=== PATIENT | male | born 1960 | race Caucasian/White ===

== ENCOUNTER → 2021-06-25 | Outpatient (CLI) | payer OTHER ==
[~2021-06-25] MED LIST: /HYDR10T PO; ACIDTAB4 PO; ADVA250A INH; AMLO10TA2 PO; AMLO5TAB2 PO; ASPI325T PO; ASPI325T10 PO; ASPI81TA21 PO; ASPI81TA4 PO; ATOR1TAB21 PO; AVEL1TAB2 PO; BACL10TA2 PO; BENA25TA4 PO; CALC600T7 PO; CARA1SUS PO; CARV12.5 PO; CARV25TA PO; CHOL4PKT PO; CLOP75TA2 PO; DOC-8.6T PO; DOCU100C PO; DOCU5LIQ PO; EC-881TA PO; FERR140T PO; FERR324T12 PO; FLEX5TAB3 PO; FLOV100A3 INH; GABA100C PO; GLYC3350 PO; HCTZ PO; HYDR50IN3 PO; HYDR7.5T38 PO; HYDROCHLOROTHIAZIDE PO; IMDU120T PO; ISOSPOW PO; LIPI20TA PO; LISI5TAB PO; LISINOPRIL PO; LISINOPRIL/HCTZ PO; MULTCAP11 PO; NAPR375T2 PO; NICO14DI5 TD; NITR0.4D6 SL; NITR0.4D6 TD; NUCY100T6 PO; OMEP40CA2 PO; PERM5CRE TOP; PRED10TA2 PO; RANE1000 PO; SENN15TA2 PO; SENN1TAB2 PO; SENN8.6T21 PO; SIMV40TA2 PO; TAPE200T PO; TAPE50TA3 PO; TYLE325T5 PO; ULTR50TA PO; VANC5INJ5 PO; VENTAER IN; VENTAER INH; VOLT1GEL2 TOP; Ventolin; Ventolin HFA INH; Voltaren Gel TD; [UNRECOGNIZED DRUG - CODE] INH; [UNRECOGNIZED DRUG - CODE] PO; [UNRECOGNIZED DRUG - CODE] PO; lansoprazole PO; plavix PO
== END ==
LOC: M LABSMTC 10:01
PROVIDERS: ATTEND Internal Medicine Cardiovascular Disease
DX: Z01.812 Encounter for preprocedural laboratory examination (principal)

== ENCOUNTER → 2021-07-27 | Outpatient (CLI) | payer OTHER | LOC: M PLAIMG 10:34 | PROVIDERS: ATTEND Family Medicine Addiction Medicine | DX: M79.605 Pain in left leg (principal) ==

== ENCOUNTER → 2021-08-08 | Outpatient (CLI) | payer OTHER ==
[~2021-08-08] MED LIST changes: +ACET-683 PO; +ALBU8.5H INH; +ASPI-226 PO; +ATOR40TA75 PO; +ISOS1TAB35 PO; +METO1TAB32 PO; +NITR0.4S14 PO
== END ==
LOC: M LABSMTC 09:07
PROVIDERS: ATTEND Anesthesiology
DX: Z01.812 Encounter for preprocedural laboratory examination (principal); Z11.52 Encounter for screening for COVID-19

== ENCOUNTER 2021-08-09 11:58 | Day surgery (SDC) | payer MEDICARE, OTHER ==
[~2021-08-09] VITALS: Ht 175.3 cm; Wt 64.4 kg
[~2021-08-09 11:58] MED LIST changes: +NS 1,000 ML IV ONE
[2021-08-09] MEDS ORDERED: propofoL 200 MG/20 ML VIAL As Ordered ONE ×3 (14:02→14:26)
[2021-08-09 15:00] VITALS: BP 142/73
[2021-08-10 09:20] LABS: CLOSTRIDIUM DIFFICILE PCR NEGATIVE (NEGATIVE)
== END 2021-08-09 18:40 | disposition home or self-care (01) ==
LOC: M OPP 11:58
PROVIDERS: ATTEND Internal Medicine Gastroenterology
DX: Z12.11 Encounter for screening for malignant neoplasm of colon (principal); Z86.010 Personal history of colon polyps; K57.30 Diverticulosis of large intestine without perforation or abscess without bleeding; K64.8 Other hemorrhoids; Z79.1 Long term (current) use of non-steroidal anti-inflammatories (NSAID); Z79.51 Long term (current) use of inhaled steroids; Z79.82 Long term (current) use of aspirin; Z79.02 Long term (current) use of antithrombotics/antiplatelets; Z79.899 Other long term (current) drug therapy; Z88.1 Allergy status to other antibiotic agents; Z88.5 Allergy status to narcotic agent; Z87.891 Personal history of nicotine dependence

== ENCOUNTER 2021-08-25 12:24 | Emergency (ER) | payer MEDICARE ==
[~2021-08-25] VITALS: Ht 175.3 cm; Wt 64.6 kg
[~2021-08-25 12:24] MED LIST changes: -NS 1,000 ML IV ONE
[2021-08-25] MEDS ORDERED: ACETAMINOPHEN 500 MG TAB PO ONE (13:05)
[2021-08-25 14:16] VITALS: BP 155/81
== END 2021-08-25 14:18 | disposition home or self-care (01) ==
LOC: M ED 12:24
DX: M25.572 Pain in left ankle and joints of left foot (principal); I10 Essential (primary) hypertension; J44.9 Chronic obstructive pulmonary disease, unspecified; J45.909 Unspecified asthma, uncomplicated; N28.9 Disorder of kidney and ureter, unspecified; E78.00 Pure hypercholesterolemia, unspecified; G47.33 Obstructive sleep apnea (adult) (pediatric); H40.9 Unspecified glaucoma; M81.0 Age-related osteoporosis without current pathological fracture; Z86.73 Personal history of transient ischemic attack (TIA), and cerebral infarction without residual deficits; Z88.1 Allergy status to other antibiotic agents; Z88.8 Allergy status to other drugs, medicaments and biological substances; Z79.899 Other long term (current) drug therapy; Z79.82 Long term (current) use of aspirin; Z79.01 Long term (current) use of anticoagulants

== ENCOUNTER → 2021-09-10 | Outpatient (REF) | payer MEDICARE | LOC: M LAB REF 14:23 | PROVIDERS: ATTEND Internal Medicine Gastroenterology | DX: R19.7 Diarrhea, unspecified (principal) ==

== ENCOUNTER 2021-10-26 09:55 | Outpatient (RCR) | payer OTHER | END 2021-10-31 | LOC: M PT 09:55 | PROVIDERS: ATTEND Orthopaedic Surgery Hand Surgery | DX: M79.672 Pain in left foot (principal) ==

== ENCOUNTER → 2021-11-02 | Outpatient (REF) | payer OTHER | LOC: M SFHCDERM 16:59 | PROVIDERS: ATTEND Nurse Practitioner Family | DX: L82.0 Inflamed seborrheic keratosis (principal); B36.8 Other specified superficial mycoses ==

== ENCOUNTER 2021-11-22 09:39 | Outpatient (RCR) | payer OTHER | END 2021-11-30 | LOC: M PT 09:39 | PROVIDERS: ATTEND Orthopaedic Surgery Hand Surgery | DX: M79.672 Pain in left foot (principal) ==

== ENCOUNTER → 2022-02-01 | Outpatient (REF) | payer OTHER ==
[2022-02-01 18:22] LABS: BASO # 0.1 10^3/uL (0.0-0.2); BASO % 0.5 % (0.0-1.0); EOS # 0.1 10^3/uL (0.0-0.5); EOS % 1.4 % (0.0-3.0); HEMATOCRIT 50.5 % (42.0-52.0); HEMOGLOBIN 16.3 g/dl (13.5-17.5); LYMPH # 2.4 10^3/uL (1.5-5.0); LYMPH % 23.2 % (24.0-44.0); MEAN CORPUSCULAR HEMOGLOBIN 29.6 pg (27.0-33.0); MEAN CORPUSCULAR HGB CONC 32.3 g/dl (32.0-36.5); MEAN CORPUSCULAR VOLUME 91.8 fl (80.0-96.0); MONO # 0.7 10^3/uL (0.0-0.8); MONO % 6.7 % (2.0-8.0); NEUTROPHILS % 67.9 % (36.0-66.0); PLATELET COUNT, AUTOMATED 238 10^3/uL (150-450); WHITE BLOOD COUNT 10.2 10^3/uL (4.0-10.0)
[2022-02-01 19:18] LABS: ALBUMIN 3.8 G/DL (3.2-5.2); ALKALINE PHOSPHATASE 90 U/L (46-116); ALT/SGPT 24 U/L (7.0-40); AST/SGOT 17 U/L (<34); BILIRUBIN,TOTAL 0.6 MG/DL (0.3-1.2); BLOOD UREA NITROGEN 16 MG/DL (9-23); CALCIUM LEVEL 9.4 MG/DL (8.3-10.6); CARBON DIOXIDE LEVEL 26 MMOL/L (20-31); CHLORIDE LEVEL 105 MMOL/L (98-107); CREATININE FOR GFR 0.76 MG/DL (0.70-1.30); GLOMERULAR FILTRATION RATE > 60.0 (>49); GLUCOSE, FASTING 84 MG/DL (74-106); POTASSIUM SERUM 5.2 MMOL/L (3.5-5.1); SODIUM LEVEL 139 MMOL/L (136-145); THYROID STIMULATING HORMONE 1.006 uIU/ML (0.55-4.78)
[2022-02-01 20:39] LABS: FREE T4 1.32 NG/DL (0.89-1.76)
== END ==
LOC: M LAB REF 16:54
PROVIDERS: ATTEND Family Medicine Addiction Medicine
DX: R42 Dizziness and giddiness (principal)

== ENCOUNTER 2022-02-11 17:27 | Emergency (ER) | payer OTHER ==
[~2022-02-11] VITALS: Ht 175.3 cm; Wt 63.6 kg
[2022-02-11 17:27] VITALS: BP 155/72
[2022-02-11] MEDS ORDERED: INCR1INH INH (17:53)
== END 2022-02-11 22:55 | disposition left against medical advice (07) ==
LOC: M ED 17:27
DX: Z53.21 Procedure and treatment not carried out due to patient leaving prior to being seen by health care provider (principal)

== ENCOUNTER → 2022-02-15 | Outpatient (CLI) | payer OTHER ==
[~2022-02-15] MED LIST changes: +INCR1INH INH
== END ==
LOC: M RAD 12:31
PROVIDERS: ATTEND Family Medicine Addiction Medicine
DX: J44.9 Chronic obstructive pulmonary disease, unspecified (principal)

== ENCOUNTER → 2022-03-22 | Outpatient (CLI) | payer OTHER | LOC: M RAD 17:35 | PROVIDERS: ATTEND Physician Assistant | DX: J44.9 Chronic obstructive pulmonary disease, unspecified (principal) ==

== ENCOUNTER → 2022-04-22 | Outpatient (CLI) | payer OTHER | LOC: M PLARAD 09:05 | PROVIDERS: ATTEND Internal Medicine Pulmonary Disease | DX: R91.8 Other nonspecific abnormal finding of lung field (principal) | CPT/HCPCS: 78815; A9552 ==

== ENCOUNTER → 2022-05-08 | Outpatient (REF) | payer OTHER ==
[2022-05-08 13:03] LABS: BLOOD UREA NITROGEN 15 MG/DL (9-23); CALCIUM LEVEL 9.2 MG/DL (8.3-10.6); CARBON DIOXIDE LEVEL 28 MMOL/L (20-31); CHLORIDE LEVEL 105 MMOL/L (98-107); CREATININE FOR GFR 0.86 MG/DL (0.70-1.30); GLOMERULAR FILTRATION RATE > 60.0 (>49); GLUCOSE, FASTING 110 MG/DL (74-106); POTASSIUM SERUM 4.7 MMOL/L (3.5-5.1); SODIUM LEVEL 139 MMOL/L (136-145)
== END ==
LOC: M LAB REF 12:02
PROVIDERS: ATTEND Family Medicine Addiction Medicine
DX: I10 Essential (primary) hypertension (principal)

== ENCOUNTER → 2022-05-09 | Outpatient (CLI) | payer OTHER | LOC: M PLARAD 13:05 | PROVIDERS: ATTEND Family Medicine Addiction Medicine | DX: R51.9 Headache, unspecified (principal) ==

== ENCOUNTER → 2022-07-06 | Outpatient (CLI) | payer OTHER | LOC: M SLEEP 20:00 | PROVIDERS: ATTEND Physician Assistant | DX: G47.33 Obstructive sleep apnea (adult) (pediatric) (principal) ==

== ENCOUNTER 2022-07-12 11:39 | Emergency (ER) | payer OTHER ==
[~2022-07-12] VITALS: Ht 175.3 cm; Wt 67.0 kg
[~2022-07-12 11:39] MED LIST changes: +BREO1INH3 INH; +CREO3600 PO; +FLUT15.820; +LORA-674 PO
[2022-07-12 13:32] VITALS: BP 152/89
== END 2022-07-12 13:33 | disposition home or self-care (01) ==
LOC: M ED 11:39
DX: S20.219A Contusion of unspecified front wall of thorax, initial encounter (principal); X58.XXXA Exposure to other specified factors, initial encounter; Y92.89 Other specified places as the place of occurrence of the external cause; Y93.89 Activity, other specified; Y99.8 Other external cause status; I25.10 Atherosclerotic heart disease of native coronary artery without angina pectoris; J44.9 Chronic obstructive pulmonary disease, unspecified; Z87.891 Personal history of nicotine dependence; F12.90 Cannabis use, unspecified, uncomplicated; Z79.899 Other long term (current) drug therapy; Z88.8 Allergy status to other drugs, medicaments and biological substances; Z88.1 Allergy status to other antibiotic agents; Z79.82 Long term (current) use of aspirin; Z79.51 Long term (current) use of inhaled steroids

== ENCOUNTER 2022-07-17 07:32 | Day surgery (SDC) | payer OTHER ==
[~2022-07-17] VITALS: Ht 175.3 cm; Wt 66.3 kg
[~2022-07-17 07:32] MED LIST changes: +BSS IRRIG/VANCO(10MG)/TOBRA(5MG)/EPINEPH(1:1000-0.5CC)500ML BAG-ORONLY IR ONE; +CEFUROXIME 1MG/0.1ML INTRACAMERAL INJ As Ordered ONE; +CYCLOPENTOLATE 1% OPHTH SOLN 2ML BTL OS SCH; +LIDOCAINE 1% SDV 5ML VIAL As Ordered ONE; +LIDOCAINE 3.5 % 1ML OPHTH TOPICAL GEL OU ONE; +PHENYLEPHRINE 10% OPHTH SOL 5ML OS PRN; +PHENYLEPHRINE 2.5% OPHTH SOL 2ML OS SCH; +TROPICAMIDE 1% OPHTH SOLN 15ML OS SCH
[2022-07-17] MEDS ORDERED: MIDAZOLAM INJ 2MG/2ML VIAL As Ordered ONE (09:55)
[2022-07-17] MEDS ORDERED: fentaNYL 100 MCG/2 ML INJECTION As Ordered ONE (09:55)
[2022-07-17 10:09] VITALS: BP 134/73; TEMP 97.8; O2SAT 96
[2022-07-17] MEDS ORDERED: OFLOXACIN 0.3 % (OCUFLOX) OPTH SOL 5ML OS ONE (10:45)
== END 2022-07-17 10:25 | disposition home or self-care (01) ==
LOC: M SDC 07:32
PROVIDERS: ATTEND Ophthalmology
DX: H25.12 Age-related nuclear cataract, left eye (principal); I25.10 Atherosclerotic heart disease of native coronary artery without angina pectoris; I25.2 Old myocardial infarction; I10 Essential (primary) hypertension; R00.0 Tachycardia, unspecified; E78.00 Pure hypercholesterolemia, unspecified; Z95.0 Presence of cardiac pacemaker; Z86.19 Personal history of other infectious and parasitic diseases; R07.9 Chest pain, unspecified; J44.9 Chronic obstructive pulmonary disease, unspecified; G47.30 Sleep apnea, unspecified; J45.909 Unspecified asthma, uncomplicated; Z95.1 Presence of aortocoronary bypass graft; Z87.891 Personal history of nicotine dependence; M47.812 Spondylosis without myelopathy or radiculopathy, cervical region; Z88.8 Allergy status to other drugs, medicaments and biological substances; Z88.1 Allergy status to other antibiotic agents; Z79.899 Other long term (current) drug therapy; Z79.82 Long term (current) use of aspirin; Z79.51 Long term (current) use of inhaled steroids; Z79.02 Long term (current) use of antithrombotics/antiplatelets
CPT/HCPCS: 66984; J0697; J2250; J3010; V2632

== ENCOUNTER → 2022-07-23 | Outpatient (CLI) | payer OTHER ==
[~2022-07-23] MED LIST changes: -BSS IRRIG/VANCO(10MG)/TOBRA(5MG)/EPINEPH(1:1000-0.5CC)500ML BAG-ORONLY IR ONE; -CEFUROXIME 1MG/0.1ML INTRACAMERAL INJ As Ordered ONE; -CYCLOPENTOLATE 1% OPHTH SOLN 2ML BTL OS SCH; -LIDOCAINE 1% SDV 5ML VIAL As Ordered ONE; -LIDOCAINE 3.5 % 1ML OPHTH TOPICAL GEL OU ONE; -PHENYLEPHRINE 10% OPHTH SOL 5ML OS PRN; -PHENYLEPHRINE 2.5% OPHTH SOL 2ML OS SCH; -TROPICAMIDE 1% OPHTH SOLN 15ML OS SCH
== END ==
LOC: M WHC 10:44
PROVIDERS: ATTEND Pediatrics
DX: M85.80 Other specified disorders of bone density and structure, unspecified site (principal)

== ENCOUNTER → 2022-08-29 | Outpatient (CLI) | payer OTHER | LOC: M RAD 15:05 | PROVIDERS: ATTEND Physician Assistant | DX: J44.9 Chronic obstructive pulmonary disease, unspecified (principal); R91.8 Other nonspecific abnormal finding of lung field ==

== ENCOUNTER 2022-09-08 16:02 | Observation (INO) | payer OTHER ==
[~2022-09-08] VITALS: Ht 175.3 cm; Wt 65.1 kg
[~2022-09-08 16:02] MED LIST changes: -FLUT15.820; +FLUT15.820 NARES
[2022-09-08] MEDS ORDERED: METO1TAB7 PO (16:17)
[2022-09-08 16:45] LABS: BASO # 0.1 10^3/uL (0.0-0.2); BASO % 0.5 % (0.0-1.0); EOS # 0.3 10^3/uL (0.0-0.5); EOS % 1.9 % (0.0-3.0); HEMOGLOBIN 15.3 g/dl (13.5-17.5); LYMPH % 14.9 % (24.0-44.0); MEAN CORPUSCULAR HEMOGLOBIN 30.4 pg (27.0-33.0); MEAN CORPUSCULAR VOLUME 89.3 fl (80.0-96.0); MONO # 0.8 10^3/uL (0.0-0.8); MONO % 5.8 % (2.0-8.0); NEUTROPHILS # 10.1 10^3/uL (1.5-8.5); NEUTROPHILS % 76.4 % (36.0-66.0); PLATELET COUNT, AUTOMATED 204 10^3/uL (150-450); RED BLOOD COUNT 5.04 10^6/uL (4.30-6.10); WHITE BLOOD COUNT 13.2 10^3/uL (4.0-10.0)
[2022-09-08 17:23] LABS: CK-MB VALUE MASS < 1.0 NG/ML (<3.6)
[2022-09-08 17:26] LABS: ALBUMIN 3.5 G/DL (3.2-5.2); ALKALINE PHOSPHATASE 65 U/L (46-116); ALT/SGPT < 9 U/L (7.0-40); AST/SGOT 21 U/L (<34); BILIRUBIN,DIRECT 0.1 MG/DL (<0.4); BILIRUBIN,TOTAL 0.4 MG/DL (0.3-1.2); BLOOD UREA NITROGEN 19 MG/DL (9-23); CALCIUM LEVEL 8.6 MG/DL (8.3-10.6); CARBON DIOXIDE LEVEL 25 MMOL/L (20-31); CHLORIDE LEVEL 107 MMOL/L (98-107); CREATININE FOR GFR 0.78 MG/DL (0.70-1.30); GLOMERULAR FILTRATION RATE > 60.0 (>49); GLUCOSE, FASTING 89 MG/DL (74-106); POTASSIUM SERUM 4.2 MMOL/L (3.5-5.1); SODIUM LEVEL 138 MMOL/L (136-145); TOTAL PROTEIN 6.1 G/DL (5.7-8.2)
[2022-09-08] MEDS ORDERED: ISOVUE-370 76% 100ML VIAL As Ordered ONE (17:32)
[2022-09-08 17:34] LABS: CPK CREATINE PHOSPHOKINASE 70 U/L (46-171); MB/CK RELATIVE INDEX 1.42 (< OR =4)
[2022-09-08 17:42] LABS: INR 1.02; PROTHROMBIN TIME 13.6 SECONDS (12.5-14.5)
[2022-09-08 17:43] LABS: PARTIAL THROMBOPLASTIN TIME 27.6 SECONDS (24.8-34.2)
[2022-09-08 18:02] LABS: RSV AMPLIFICATION NEGATIVE (NEGATIVE)
[2022-09-08] MEDS ORDERED: INCR1INH INH (18:59)
[2022-09-08] MEDS ORDERED: LIDO1PAD TOP (18:59)
[2022-09-08] MEDS ORDERED: NICO21DI9 TOP (18:59)
[2022-09-08] MEDS ORDERED: HOME MED LIST COMPLETE! XX SCH (19:05)
[2022-09-08] MEDS ORDERED: CLOPIDOGREL 75 MG TAB PO STA (19:13)
[2022-09-08] MEDS ORDERED: LIDOCAINE 5% (LIDODERM) PATCH TOP PRN (19:15)
[2022-09-08] MEDS ORDERED: NITROGLYCERIN 0.4MG SUBL TABLET SL PRN (19:15)
[2022-09-08] MEDS ORDERED: ALBUTEROL 90 MCG/ACT 8GM HFA INHALER INH PRN (19:15)
[2022-09-08] MEDS ORDERED: ACETAMINOPHEN TAB 650MG DOSE (2X325MG) PO PRN (19:15)
[2022-09-08 19:38] LABS: HEMOGLOBIN A1c 5.5 % (4.0-6.0)
[2022-09-08] MEDS: ADVAIR HFA 115/21MCG INHALER INH SCH (20:00)
[2022-09-08] MEDS ORDERED: CREO3600 PO ×2 (20:15)
[2022-09-08 21:11] LABS: CHOLESTEROL LEVEL 126 MG/DL (<200); CHOLESTEROL RISK RATIO 3.76 (<5); HDL CHOLESTEROL 33.5 MG/DL (>40); LDL CHOLESTEROL 54.7 MG/DL (<100); NON-HDL-C 92.5 MG/DL; TRIGLYCERIDES LEVEL 189 MG/DL (<150)
[2022-09-09 00:30] VITALS: BP 144/81; TEMP 98.1; O2SAT 95
[2022-09-09 06:00] VITALS: BP 147/80; TEMP 98.1; O2SAT 93
[2022-09-09 06:29] LABS: HEMATOCRIT 47.6 % (42.0-52.0); HEMOGLOBIN 16.1 g/dl (13.5-17.5); MEAN CORPUSCULAR HEMOGLOBIN 30.7 pg (27.0-33.0); MEAN CORPUSCULAR HGB CONC 33.8 g/dl (32.0-36.5); MEAN CORPUSCULAR VOLUME 90.7 fl (80.0-96.0); PLATELET COUNT, AUTOMATED 195 10^3/uL (150-450); RED BLOOD COUNT 5.25 10^6/uL (4.30-6.10); WHITE BLOOD COUNT 11.9 10^3/uL (4.0-10.0)
[2022-09-09 06:57] LABS: BLOOD UREA NITROGEN 16 MG/DL (9-23); CALCIUM LEVEL 8.4 MG/DL (8.3-10.6); CARBON DIOXIDE LEVEL 24 MMOL/L (20-31); CHLORIDE LEVEL 109 MMOL/L (98-107); GLOMERULAR FILTRATION RATE > 60.0 (>49); GLUCOSE, FASTING 78 MG/DL (74-106); MAGNESIUM LEVEL 2.3 MG/DL (1.8-2.4); POTASSIUM SERUM 4.1 MMOL/L (3.5-5.1); SODIUM LEVEL 140 MMOL/L (136-145)
[2022-09-09] MEDS: TIOTROPIUM INHALER/CAPSULE (SPIRIVA) INH SCH (07:52)
[2022-09-09] MEDS: ADVAIR HFA 115/21MCG INHALER INH SCH ×2 (07:53→20:58)
[2022-09-09] MEDS ORDERED: CREON-12 CAPSULE PO PRN (08:00)
[2022-09-09] MEDS ORDERED: ATORVASTATIN 20 MG TAB PO SCH (09:00)
[2022-09-09] MEDS: ASPIRIN 81MG ENTERIC TABLET PO SCH (09:38)
[2022-09-09] MEDS: CREON-12 CAPSULE PO SCH ×3 (09:38→17:27)
[2022-09-09] MEDS: LORATADINE 10 MG TAB PO SCH (09:38)
[2022-09-09] MEDS: PANTOPRAZOLE 20 MG TAB PO SCH (09:38)
[2022-09-09] MEDS: CLOPIDOGREL 75 MG TAB PO SCH (09:38)
[2022-09-09] MEDS: METOPROLOL SUCC (TopROL XL) 50MG **XL** TAB PO SCH (09:39)
[2022-09-09 09:47] VITALS: BP_SYST 132; BP_SYST 133; BP_SYST 143; BP_DIAS 76; BP_DIAS 81; BP_DIAS 83
[2022-09-09] MEDS: ENOXAPARIN 40MG/0.4ML SYRINGE (J1650 PER 10MG) SC SCH (13:05)
[2022-09-09 14:00] VITALS: BP 115/68; TEMP 97.9; O2SAT 96
[2022-09-09 14:19] VITALS: BP_SYST 114; BP_SYST 115; BP_SYST 117; BP_DIAS 67; BP_DIAS 68
[2022-09-09 22:00] VITALS: BP_SYST 125; BP_SYST 132; BP_SYST 135; BP_SYST 136; BP_DIAS 72; BP_DIAS 78; BP_DIAS 79; TEMP 97.9; O2SAT 92
[2022-09-10 06:00] VITALS: BP 152/79; TEMP 97.7; O2SAT 97
[2022-09-10] MEDS: ADVAIR HFA 115/21MCG INHALER INH SCH ×2 (07:41→19:34)
[2022-09-10] MEDS: TIOTROPIUM INHALER/CAPSULE (SPIRIVA) INH SCH (07:41)
[2022-09-10] MEDS: CREON-12 CAPSULE PO SCH ×3 (08:18→16:55)
[2022-09-10] MEDS: LORATADINE 10 MG TAB PO SCH (08:18)
[2022-09-10] MEDS: CLOPIDOGREL 75 MG TAB PO SCH (08:18)
[2022-09-10] MEDS: ASPIRIN 81MG ENTERIC TABLET PO SCH (08:19)
[2022-09-10] MEDS: ATORVASTATIN 20 MG TAB PO SCH (08:19)
[2022-09-10] MEDS: METOPROLOL SUCC (TopROL XL) 50MG **XL** TAB PO SCH (08:19)
[2022-09-10] MEDS: ENOXAPARIN 40MG/0.4ML SYRINGE (J1650 PER 10MG) SC SCH (08:20)
[2022-09-10] MEDS: PANTOPRAZOLE 20 MG TAB PO SCH (08:24)
[2022-09-10 09:53] VITALS: BP 138/74; TEMP 97.7; O2SAT 95
[2022-09-10 09:54] VITALS: BP 152/87
[2022-09-10 12:22] LABS: BASO # 0.1 10^3/uL (0.0-0.2); BASO % 0.5 % (0.0-1.0); EOS # 0.4 10^3/uL (0.0-0.5); HEMATOCRIT 48.3 % (42.0-52.0); HEMOGLOBIN 16.4 g/dl (13.5-17.5); LYMPH # 1.9 10^3/uL (1.5-5.0); LYMPH % 16.4 % (24.0-44.0); MEAN CORPUSCULAR HEMOGLOBIN 30.8 pg (27.0-33.0); MEAN CORPUSCULAR VOLUME 90.6 fl (80.0-96.0); MONO # 0.8 10^3/uL (0.0-0.8); MONO % 6.8 % (2.0-8.0); NEUTROPHILS # 8.4 10^3/uL (1.5-8.5); NEUTROPHILS % 72.9 % (36.0-66.0); PLATELET COUNT, AUTOMATED 201 10^3/uL (150-450); RED BLOOD COUNT 5.33 10^6/uL (4.30-6.10); WHITE BLOOD COUNT 11.6 10^3/uL (4.0-10.0)
[2022-09-10 12:35] LABS: ALBUMIN 3.4 G/DL (3.2-5.2); ALKALINE PHOSPHATASE 66 U/L (46-116); ALT/SGPT < 9 U/L (7.0-40); AST/SGOT 22 U/L (<34); BILIRUBIN,TOTAL 0.4 MG/DL (0.3-1.2); BLOOD UREA NITROGEN 19 MG/DL (9-23); CALCIUM LEVEL 8.9 MG/DL (8.3-10.6); CARBON DIOXIDE LEVEL 26 MMOL/L (20-31); CHLORIDE LEVEL 110 MMOL/L (98-107); CREATININE FOR GFR 0.61 MG/DL (0.70-1.30); GLOMERULAR FILTRATION RATE > 60.0 (>49); GLUCOSE, FASTING 92 MG/DL (74-106); POTASSIUM SERUM 4.1 MMOL/L (3.5-5.1); SODIUM LEVEL 142 MMOL/L (136-145); TOTAL PROTEIN 6.1 G/DL (5.7-8.2)
[2022-09-10] MEDS ORDERED: LIPI80TA PO (13:34)
[2022-09-10] MEDS ORDERED: CLOP75TA2 PO (13:34)
[2022-09-10 14:00] VITALS: BP 151/87; TEMP 97.7; O2SAT 96
[2022-09-10] MEDS ORDERED: ONDANSETRON 4MG 2ML VIAL IV PRN (15:50)
[2022-09-10 20:00] VITALS: BP 118/69; TEMP 98.6; O2SAT 96
[2022-09-11 06:00] VITALS: BP 129/74; TEMP 98.1; O2SAT 94
[2022-09-11] MEDS: CREON-12 CAPSULE PO SCH (07:55)
[2022-09-11] MEDS: ASPIRIN 81MG ENTERIC TABLET PO SCH (07:55)
[2022-09-11] MEDS: PANTOPRAZOLE 20 MG TAB PO SCH (07:55)
[2022-09-11] MEDS: CLOPIDOGREL 75 MG TAB PO SCH (07:55)
[2022-09-11] MEDS: ATORVASTATIN 20 MG TAB PO SCH (07:55)
[2022-09-11 07:56] VITALS: BP 138/74
[2022-09-11] MEDS: METOPROLOL SUCC (TopROL XL) 50MG **XL** TAB PO SCH (07:56)
[2022-09-11] MEDS: ENOXAPARIN 40MG/0.4ML SYRINGE (J1650 PER 10MG) SC SCH (07:56)
[2022-09-11] MEDS: LORATADINE 10 MG TAB PO SCH (07:56)
[2022-09-11] MEDS: TIOTROPIUM INHALER/CAPSULE (SPIRIVA) INH SCH (09:28)
[2022-09-11] MEDS: ADVAIR HFA 115/21MCG INHALER INH SCH ×2 (09:28→19:59)
[2022-09-11] MEDS: CREON-24 CAPSULE PO SCH ×2 (12:06→17:18)
[2022-09-11 14:00] VITALS: BP 125/70; TEMP 97.7; O2SAT 94
[2022-09-11 20:00] VITALS: BP 126/72; TEMP 97.9; O2SAT 94
== END 2022-09-11 21:16 | disposition other institution (70) ==
LOC: M ED 16:02 → M ED INP 16:03 → INTOOBSV 19:13 → UNDOADMOB 19:13 → ENRESERV 22:12 → M MSPAV 09-09 00:37 → M ED INP 09-09 00:37 → M MSPAV 09-09 00:37
PROVIDERS: ADMIT Family Medicine; ATTEND Student in an Organized Health Care Education/Training Program
DX: R20.2 Paresthesia of skin (principal); R53.1 Weakness; R55 Syncope and collapse; I65.03 Occlusion and stenosis of bilateral vertebral arteries; I49.8 Other specified cardiac arrhythmias; I67.82 Cerebral ischemia; G31.1 Senile degeneration of brain, not elsewhere classified; R30.0 Dysuria; J44.9 Chronic obstructive pulmonary disease, unspecified; R42 Dizziness and giddiness; K86.89 Other specified diseases of pancreas; E78.5 Hyperlipidemia, unspecified; I25.10 Atherosclerotic heart disease of native coronary artery without angina pectoris; Z95.1 Presence of aortocoronary bypass graft; Z88.1 Allergy status to other antibiotic agents; Z88.6 Allergy status to analgesic agent; Z88.8 Allergy status to other drugs, medicaments and biological substances; Z79.899 Other long term (current) drug therapy; Z79.82 Long term (current) use of aspirin; Z79.02 Long term (current) use of antithrombotics/antiplatelets; Z79.51 Long term (current) use of inhaled steroids; F17.210 Nicotine dependence, cigarettes, uncomplicated
CPT/HCPCS: 36415; 70450; 70496; 70498; 70551; 71045; 80047; 80048; 80053; 80061; 80076; 81001; 82550; 82553; 83036; 83735; 85025; 85027; 85610; 85730; 86850; 86900; 86901; 87631; 93005; 93041; 93306; 94640; 94760; 96372; 96374; 97110; 97116; 97161; 97165; 97530; 97535; 99285; J1650; J2405; Q9967

== ENCOUNTER 2022-09-26 11:19 | Observation (INO) | payer OTHER ==
[~2022-09-26] VITALS: Ht 175.3 cm; Wt 65.5 kg
[~2022-09-26 11:19] MED LIST changes: +LIDO1PAD TOP; +LIPI80TA PO; +METO1TAB7 PO; +NICO21DI9 TOP
[2022-09-26 11:59] LABS: BASO # 0.1 10^3/uL (0.0-0.2); BASO % 0.8 % (0.0-1.0); EOS # 0.5 10^3/uL (0.0-0.5); EOS % 3.6 % (0.0-3.0); HEMATOCRIT 47.2 % (42.0-52.0); HEMOGLOBIN 16.1 g/dl (13.5-17.5); LYMPH # 2.3 10^3/uL (1.5-5.0); LYMPH % 18.3 % (24.0-44.0); MEAN CORPUSCULAR HEMOGLOBIN 30.3 pg (27.0-33.0); MEAN CORPUSCULAR HGB CONC 34.1 g/dl (32.0-36.5); MEAN CORPUSCULAR VOLUME 88.9 fl (80.0-96.0); MONO # 0.8 10^3/uL (0.0-0.8); NEUTROPHILS % 70.6 % (36.0-66.0); PLATELET COUNT, AUTOMATED 248 10^3/uL (150-450); RED BLOOD COUNT 5.31 10^6/uL (4.30-6.10); WHITE BLOOD COUNT 12.7 10^3/uL (4.0-10.0)
[2022-09-26 12:15] LABS: ALBUMIN 3.7 G/DL (3.2-5.2); ALKALINE PHOSPHATASE 97 U/L (46-116); ALT/SGPT 23 U/L (7.0-40); AST/SGOT 12 U/L (<34); BILIRUBIN,DIRECT 0.3 MG/DL (<0.4); BILIRUBIN,TOTAL 0.7 MG/DL (0.3-1.2); BLOOD UREA NITROGEN 12 MG/DL (9-23); CALCIUM LEVEL 9.4 MG/DL (8.3-10.6); CARBON DIOXIDE LEVEL 21 MMOL/L (20-31); CHLORIDE LEVEL 109 MMOL/L (98-107); CK-MB VALUE MASS < 1.0 NG/ML (<3.6); CPK CREATINE PHOSPHOKINASE 76 U/L (46-171); CREATININE FOR GFR 0.68 MG/DL (0.70-1.30); GLOMERULAR FILTRATION RATE > 60.0 (>49); GLUCOSE, FASTING 91 MG/DL (74-106); MB/CK RELATIVE INDEX 1.31 (< OR =4); SODIUM LEVEL 140 MMOL/L (136-145); TOTAL PROTEIN 6.5 G/DL (5.7-8.2)
[2022-09-26 12:17] LABS: THYROID STIMULATING HORMONE 1.456 uIU/ML (0.55-4.78)
[2022-09-26 12:37] LABS: INR 0.93; PROTHROMBIN TIME 12.7 SECONDS (12.5-14.5)
[2022-09-26 12:38] LABS: RSV AMPLIFICATION NEGATIVE (NEGATIVE)
[2022-09-26] MEDS ORDERED: PROHANCE 279.3MG/ML 15ML VIAL As Ordered ONE (16:02)
[2022-09-26] MEDS ORDERED: MED REC IN PROGRESS XX SCH (17:00)
[2022-09-26] MEDS ORDERED: ACETAMINOPHEN TAB 650MG DOSE (2X325MG) PO PRN ×2 (17:10→20:50)
[2022-09-26] MEDS ORDERED: LEVE750T5 PO (18:46)
[2022-09-26] MEDS ORDERED: EZET10TA21 PO (18:46)
[2022-09-26] MEDS ORDERED: HOME MED LIST COMPLETE! XX SCH (18:55)
[2022-09-26 20:16] VITALS: BP_SYST 123; BP_SYST 137; BP_SYST 140; BP_DIAS 60; BP_DIAS 64; BP_DIAS 77
[2022-09-26 20:22] VITALS: BP 137/64; TEMP 97.2; O2SAT 95
[2022-09-26] MEDS ORDERED: ALBUTEROL SULFATE 2.5MG/0.5ML INH NEB SOLN NEB PRN (20:50)
[2022-09-26] MEDS ORDERED: NAPROXEN 250 MG TAB PO PRN (20:50)
[2022-09-26] MEDS ORDERED: LIDOCAINE 5% (LIDODERM) PATCH TOP PRN (20:50)
[2022-09-26] MEDS ORDERED: PANTOPRAZOLE 40MG VIAL IV ONE (20:55)
[2022-09-26] MEDS ORDERED: ONDANSETRON 4MG 2ML VIAL IV PRN (20:55)
[2022-09-26] MEDS ORDERED: EZETIMIBE 10MG TABLET (ZETIA) PO SCH (21:00)
[2022-09-26] MEDS: levETIRAcetam 250MG TABLET (KEPPRA) PO SCH (21:24)
[2022-09-27 05:51] LABS: HEMATOCRIT 44.2 % (42.0-52.0); HEMOGLOBIN 14.9 g/dl (13.5-17.5); MEAN CORPUSCULAR HEMOGLOBIN 30.5 pg (27.0-33.0); MEAN CORPUSCULAR HGB CONC 33.7 g/dl (32.0-36.5); MEAN CORPUSCULAR VOLUME 90.4 fl (80.0-96.0); PLATELET COUNT, AUTOMATED 225 10^3/uL (150-450); RED BLOOD COUNT 4.89 10^6/uL (4.30-6.10); WHITE BLOOD COUNT 12.2 10^3/uL (4.0-10.0)
[2022-09-27 06:00] VITALS: BP_SYST 134; BP_SYST 135; BP_SYST 143; BP_DIAS 63; BP_DIAS 66; BP_DIAS 73; TEMP 97.8; O2SAT 95
[2022-09-27 06:18] LABS: BLOOD UREA NITROGEN 16 MG/DL (9-23); CALCIUM LEVEL 8.6 MG/DL (8.3-10.6); CARBON DIOXIDE LEVEL 23 MMOL/L (20-31); CHLORIDE LEVEL 110 MMOL/L (98-107); CREATININE FOR GFR 0.81 MG/DL (0.70-1.30); GLOMERULAR FILTRATION RATE > 60.0 (>49); GLUCOSE, FASTING 84 MG/DL (74-106); POTASSIUM SERUM 4.2 MMOL/L (3.5-5.1); SODIUM LEVEL 142 MMOL/L (136-145)
[2022-09-27] MEDS ORDERED: SYMBICORT 160/4.5MCG INHALER 6GM INH SCH (08:00)
[2022-09-27] MEDS ORDERED: CREON-12 CAPSULE PO SCH (08:00)
[2022-09-27] MEDS ORDERED: TIOTROPIUM INHALER/CAPSULE (SPIRIVA) INH SCH (08:00)
[2022-09-27] MEDS: CREON-24 CAPSULE PO SCH ×2 (08:55→12:43)
[2022-09-27 08:58] VITALS: BP 125/65
[2022-09-27] MEDS: levETIRAcetam 250MG TABLET (KEPPRA) PO SCH (08:58)
[2022-09-27] MEDS ORDERED: METOPROLOL SUCC (TopROL XL) 50MG **XL** TAB PO SCH (09:00)
[2022-09-27] MEDS ORDERED: CLOPIDOGREL 75 MG TAB PO SCH (09:00)
[2022-09-27] MEDS ORDERED: ASPIRIN 81MG ENTERIC TABLET PO SCH (09:00)
[2022-09-27] MEDS ORDERED: ATORVASTATIN 20 MG TAB PO SCH (09:00)
[2022-09-27] MEDS ORDERED: LORATADINE 10 MG TAB PO SCH (09:00)
== END 2022-09-27 14:30 | disposition home or self-care (01) ==
LOC: EDBD 11:19 → M ED 11:19 → M ED INP 17:07 → M MS4PR 20:10
PROVIDERS: ADMIT Family Medicine; ATTEND Family Medicine
DX: R42 Dizziness and giddiness (principal); I10 Essential (primary) hypertension; I25.10 Atherosclerotic heart disease of native coronary artery without angina pectoris; J44.9 Chronic obstructive pulmonary disease, unspecified; E78.5 Hyperlipidemia, unspecified; K86.89 Other specified diseases of pancreas; Z86.73 Personal history of transient ischemic attack (TIA), and cerebral infarction without residual deficits; I65.02 Occlusion and stenosis of left vertebral artery; F17.219 Nicotine dependence, cigarettes, with unspecified nicotine-induced disorders; Z95.1 Presence of aortocoronary bypass graft; Z88.1 Allergy status to other antibiotic agents; Z88.8 Allergy status to other drugs, medicaments and biological substances; Z88.6 Allergy status to analgesic agent; Z79.899 Other long term (current) drug therapy; Z79.82 Long term (current) use of aspirin; Z79.02 Long term (current) use of antithrombotics/antiplatelets; Z79.51 Long term (current) use of inhaled steroids
CPT/HCPCS: 36415; 70450; 70544; 70549; 70551; 80048; 80076; 82550; 82553; 83735; 84443; 85025; 85027; 85610; 87631; 93005; 93041; 94640; 94760; 96374; 96375; 97161; 97530; 99285; A9576; C9113; J2405

== ENCOUNTER → 2022-10-25 | Outpatient (CLI) | payer OTHER ==
[~2022-10-25] MED LIST changes: +EZET10TA21 PO; +LEVE750T5 PO
== END ==
LOC: M SLEEP 08:12
DX: R56.9 Unspecified convulsions (principal)

== ENCOUNTER → 2022-11-19 | Outpatient (REF) | payer OTHER ==
[~2022-11-19] MED LIST changes: +LORA-1041 PO; -LORA-674 PO
[2022-11-19 18:56] LABS: BASO # 0.1 10^3/uL (0.0-0.2); BASO % 0.7 % (0.0-1.0); EOS # 0.4 10^3/uL (0.0-0.5); EOS % 3.4 % (0.0-3.0); HEMATOCRIT 52.3 % (42.0-52.0); HEMOGLOBIN 17.1 g/dl (13.5-17.5); LYMPH # 2.4 10^3/uL (1.5-5.0); LYMPH % 22.8 % (24.0-44.0); MEAN CORPUSCULAR HEMOGLOBIN 30.9 pg (27.0-33.0); MEAN CORPUSCULAR HGB CONC 32.7 g/dl (32.0-36.5); MEAN CORPUSCULAR VOLUME 94.4 fl (80.0-96.0); MONO # 0.9 10^3/uL (0.0-0.8); MONO % 8.3 % (2.0-8.0); NEUTROPHILS # 6.6 10^3/uL (1.5-8.5); NEUTROPHILS % 64.2 % (36.0-66.0); PLATELET COUNT, AUTOMATED 256 10^3/uL (150-450); RED BLOOD COUNT 5.54 10^6/uL (4.30-6.10); WHITE BLOOD COUNT 10.3 10^3/uL (4.0-10.0)
[2022-11-19 19:06] LABS: ALBUMIN 4.1 G/DL (3.2-5.2); ALKALINE PHOSPHATASE 104 U/L (46-116); ALT/SGPT 28 U/L (7.0-40); AST/SGOT 25 U/L (<34); BILIRUBIN,TOTAL 0.4 MG/DL (0.3-1.2); BLOOD UREA NITROGEN 15 MG/DL (9-23); CALCIUM LEVEL 9.6 MG/DL (8.3-10.6); CARBON DIOXIDE LEVEL 28 MMOL/L (20-31); CHLORIDE LEVEL 109 MMOL/L (98-107); CREATININE FOR GFR 0.84 MG/DL (0.70-1.30); GLOMERULAR FILTRATION RATE > 60.0 (>49); GLUCOSE, FASTING 73 MG/DL (74-106); POTASSIUM SERUM 4.9 MMOL/L (3.5-5.1); SODIUM LEVEL 143 MMOL/L (136-145); TOTAL PROTEIN 7.2 G/DL (5.7-8.2)
== END ==
LOC: M LAB REF 16:15
PROVIDERS: ATTEND Family Medicine Addiction Medicine
DX: R35.0 Frequency of micturition (principal); M79.672 Pain in left foot

== ENCOUNTER → 2023-01-27 | Outpatient (REF) | payer OTHER ==
[~2023-01-27] MED LIST changes: +ALEN70TA82 PO
[2023-01-27 18:38] LABS: BASO # 0.1 10^3/uL (0.0-0.2); BASO % 0.5 % (0.0-1.0); EOS # 0.3 10^3/uL (0.0-0.5); EOS % 2.8 % (0.0-3.0); HEMATOCRIT 49.7 % (42.0-52.0); HEMOGLOBIN 16.5 g/dl (13.5-17.5); LYMPH # 2.5 10^3/uL (1.5-5.0); LYMPH % 22.9 % (24.0-44.0); MEAN CORPUSCULAR HEMOGLOBIN 30.1 pg (27.0-33.0); MEAN CORPUSCULAR HGB CONC 33.2 g/dl (32.0-36.5); MEAN CORPUSCULAR VOLUME 90.5 fl (80.0-96.0); MONO # 0.8 10^3/uL (0.0-0.8); MONO % 7.4 % (2.0-8.0); NEUTROPHILS # 7.2 10^3/uL (1.5-8.5); NEUTROPHILS % 66.1 % (36.0-66.0); PLATELET COUNT, AUTOMATED 237 10^3/uL (150-450); RED BLOOD COUNT 5.49 10^6/uL (4.30-6.10)
[2023-01-27 18:58] LABS: LIPASE 42 U/L (12-53)
[2023-01-27 19:00] LABS: AMYLASE 78 U/L (30-118)
[2023-01-27 19:01] LABS: ALBUMIN 3.8 G/DL (3.2-5.2); ALKALINE PHOSPHATASE 132 U/L (46-116); ALT/SGPT 21 U/L (7.0-40); AST/SGOT 19 U/L (<34); BILIRUBIN,TOTAL 0.4 MG/DL (0.3-1.2); BLOOD UREA NITROGEN 26 MG/DL (9-23); CARBON DIOXIDE LEVEL 26 MMOL/L (20-31); CHLORIDE LEVEL 108 MMOL/L (98-107); CREATININE FOR GFR 0.76 MG/DL (0.70-1.30); GLOMERULAR FILTRATION RATE > 60.0 (>49); GLUCOSE, FASTING 76 MG/DL (74-106); SODIUM LEVEL 143 MMOL/L (136-145); TOTAL PROTEIN 6.8 G/DL (5.7-8.2)
== END ==
LOC: M LAB REF 16:25
PROVIDERS: ATTEND Family Medicine Addiction Medicine
DX: R10.13 Epigastric pain (principal)

== ENCOUNTER → 2023-02-06 | Outpatient (CLI) | payer OTHER | LOC: M RAD 08:31 | PROVIDERS: ATTEND Family Medicine Addiction Medicine | DX: K76.0 Fatty (change of) liver, not elsewhere classified (principal) ==

== ENCOUNTER → 2023-02-19 | Outpatient (CLI) | payer OTHER | LOC: M RAD 16:03 | PROVIDERS: ATTEND Physician Assistant | DX: R91.8 Other nonspecific abnormal finding of lung field (principal); J44.9 Chronic obstructive pulmonary disease, unspecified; S22.080A Wedge compression fracture of T11-T12 vertebra, initial encounter for closed fracture; Y93.9 Activity, unspecified; Y92.9 Unspecified place or not applicable ==

== ENCOUNTER → 2023-04-03 | Outpatient (CLI) | payer OTHER ==
[2023-04-03 11:27] LABS: BASO # 0.1 10^3/uL (0.0-0.2); BASO % 0.7 % (0.0-1.0); EOS # 0.9 10^3/uL (0.0-0.5); EOS % 9.6 % (0.0-3.0); HEMOGLOBIN 14.8 g/dl (13.5-17.5); LYMPH # 2.1 10^3/uL (1.5-5.0); LYMPH % 21.3 % (24.0-44.0); MEAN CORPUSCULAR HEMOGLOBIN 30.8 pg (27.0-33.0); MEAN CORPUSCULAR HGB CONC 33.6 g/dl (32.0-36.5); MEAN CORPUSCULAR VOLUME 91.5 fl (80.0-96.0); MONO # 0.7 10^3/uL (0.0-0.8); MONO % 6.8 % (2.0-8.0); NEUTROPHILS % 61.2 % (36.0-66.0); PLATELET COUNT, AUTOMATED 237 10^3/uL (150-450); RED BLOOD COUNT 4.81 10^6/uL (4.30-6.10); WHITE BLOOD COUNT 9.8 10^3/uL (4.0-10.0)
[2023-04-03 11:54] LABS: BLOOD UREA NITROGEN 22 MG/DL (9-23); CALCIUM LEVEL 8.7 MG/DL (8.3-10.6); CARBON DIOXIDE LEVEL 27 MMOL/L (20-31); CHLORIDE LEVEL 111 MMOL/L (98-107); GLOMERULAR FILTRATION RATE > 60.0 (>49); GLUCOSE, FASTING 101 MG/DL (74-106); MAGNESIUM LEVEL 2.1 MG/DL (1.8-2.4); POTASSIUM SERUM 4.4 MMOL/L (3.5-5.1); SODIUM LEVEL 141 MMOL/L (136-145)
== END ==
LOC: M LAB 10:59
PROVIDERS: ATTEND Registered Nurse
DX: R06.02 Shortness of breath (principal); I50.9 Heart failure, unspecified; I48.91 Unspecified atrial fibrillation

== ENCOUNTER → 2023-04-14 | Outpatient (CLI) | payer OTHER ==
[~2023-04-14] MED LIST changes: +ATOR80TA59 PO; +EQL0.65S NARES; +MECL-86 PO; +PANT-23 PO; +TOPR25TA PO
== END ==
LOC: M RAD 15:05
PROVIDERS: ATTEND Internal Medicine Cardiovascular Disease
DX: I72.4 Aneurysm of artery of lower extremity (principal)

== ENCOUNTER → 2023-06-02 | Outpatient (CLI) | payer OTHER ==
[~2023-06-02] MED LIST changes: +E-Z-GAS II EFFERVESCENT PACKET (SODIUM BICARB./CITRIC ACID/SIMETHICONE) As Ordered ONE; +E-Z-HD 98% w/w 340GM SUSP BTL As Ordered ONE; +E-Z-PAQUE 96% w/w SUSP 176GM BTL As Ordered ONE
== END ==
LOC: M RAD 07:41
PROVIDERS: ATTEND Internal Medicine Gastroenterology
DX: K92.1 Melena (principal); K21.9 Gastro-esophageal reflux disease without esophagitis

== ENCOUNTER → 2023-07-24 | Outpatient (CLI) | payer MEDICARE, OTHER ==
[~2023-07-24] MED LIST changes: -E-Z-GAS II EFFERVESCENT PACKET (SODIUM BICARB./CITRIC ACID/SIMETHICONE) As Ordered ONE; -E-Z-HD 98% w/w 340GM SUSP BTL As Ordered ONE; -E-Z-PAQUE 96% w/w SUSP 176GM BTL As Ordered ONE
== END ==
LOC: M RAD 12:34
PROVIDERS: ATTEND Pain Medicine Interventional Pain Medicine
DX: M54.16 Radiculopathy, lumbar region (principal)

== ENCOUNTER → 2023-09-22 | Outpatient (CLI) | payer MEDICARE ==
[2023-09-22 14:48] LABS: HEMATOCRIT 43.8 % (42.0-52.0); MEAN CORPUSCULAR HEMOGLOBIN 31.1 pg (27.0-33.0); MEAN CORPUSCULAR HGB CONC 34.2 g/dl (32.0-36.5); MEAN CORPUSCULAR VOLUME 90.7 fl (80.0-96.0); PLATELET COUNT, AUTOMATED 220 10^3/uL (150-450); RED BLOOD COUNT 4.83 10^6/uL (4.30-6.10); WHITE BLOOD COUNT 10.7 10^3/uL (4.0-10.0)
[2023-09-22 15:09] LABS: ALBUMIN 3.6 G/DL (3.2-5.2); ALKALINE PHOSPHATASE 97 U/L (46-116); ALT/SGPT 16 U/L (7.0-40); AST/SGOT 11 U/L (<34); BILIRUBIN,TOTAL 0.6 MG/DL (0.3-1.2); BLOOD UREA NITROGEN 16 MG/DL (9-23); CALCIUM LEVEL 9.2 MG/DL (8.3-10.6); CARBON DIOXIDE LEVEL 23 MMOL/L (20-31); CHLORIDE LEVEL 110 MMOL/L (98-107); GLOMERULAR FILTRATION RATE > 60.0 (>49); GLUCOSE, FASTING 126 MG/DL (74-106); POTASSIUM SERUM 4.2 MMOL/L (3.5-5.1); SODIUM LEVEL 140 MMOL/L (136-145); TOTAL PROTEIN 6.3 G/DL (5.7-8.2)
[2023-09-22 15:14] LABS: INR 1.1; PROTHROMBIN TIME 13.9 SECONDS (12.5-14.5)
== END ==
LOC: M LAB 14:19
DX: I65.02 Occlusion and stenosis of left vertebral artery (principal)

== ENCOUNTER → 2024-03-16 | Outpatient (CLI) | payer MEDICARE ==
[~2024-03-16] MED LIST changes: +ATOR-398 PO; -LIPI80TA PO
== END ==
LOC: M PLAIMG 12:34
PROVIDERS: ATTEND Physician Assistant
DX: R91.8 Other nonspecific abnormal finding of lung field (principal)

== ENCOUNTER 2024-04-16 09:22 | Emergency (ER) | payer MEDICARE ==
[~2024-04-16] VITALS: Ht 175.3 cm; Wt 61.2 kg
[2024-04-16 12:10] LABS: BASO # 0.1 10^3/uL (0.0-0.2); BASO % 0.5 % (0.0-1.0); EOS # 0.6 10^3/uL (0.0-0.5); EOS % 5.3 % (0.0-3.0); HEMATOCRIT 49.8 % (42.0-52.0); HEMOGLOBIN 16.7 g/dl (13.5-17.5); LYMPH # 2.5 10^3/uL (1.5-5.0); LYMPH % 21.5 % (24.0-44.0); MEAN CORPUSCULAR HGB CONC 33.5 g/dl (32.0-36.5); MEAN CORPUSCULAR VOLUME 92.6 fl (80.0-96.0); MONO # 0.7 10^3/uL (0.0-0.8); MONO % 6.4 % (2.0-8.0); NEUTROPHILS # 7.7 10^3/uL (1.5-8.5); PLATELET COUNT, AUTOMATED 254 10^3/uL (150-450); RED BLOOD COUNT 5.38 10^6/uL (4.30-6.10); WHITE BLOOD COUNT 11.6 10^3/uL (4.0-10.0)
[2024-04-16 12:19] LABS: ERYTHROCYTE SEDIMENTATION RATE 19 mm/hr (0-20)
[2024-04-16 12:39] LABS: ALBUMIN 3.7 G/DL (3.2-5.2); ALKALINE PHOSPHATASE 94 U/L (40-129); ALT/SGPT 24 U/L (7.0-40); AST/SGOT 16 U/L (<34); BILIRUBIN,DIRECT 0.1 MG/DL (<0.4); BILIRUBIN,TOTAL 0.3 MG/DL (0.3-1.2); BLOOD UREA NITROGEN 15 MG/DL (9-23); C REACTIVE PROTEIN QUANTITATIV < 0.50 MG/DL (<1.0); CALCIUM LEVEL 9.6 MG/DL (8.3-10.6); CARBON DIOXIDE LEVEL 27 MMOL/L (20-31); CHLORIDE LEVEL 107 MMOL/L (98-107); CREATININE FOR GFR 0.79 MG/DL (0.70-1.30); GLOMERULAR FILTRATION RATE > 60.0 (>49); GLUCOSE, FASTING 86 MG/DL (74-106); POTASSIUM SERUM 4.5 MMOL/L (3.5-5.1); SODIUM LEVEL 143 MMOL/L (136-145); TOTAL PROTEIN 6.9 G/DL (5.7-8.2)
[2024-04-16 12:51] LABS: PROCALCITONIN 0.04 ng/ml
[2024-04-16 13:35] LABS: INR 0.97; PROTHROMBIN TIME 13.2 SECONDS (12.5-14.5)
[2024-04-16] MEDS ORDERED: PRED20TA PO (13:55)
[2024-04-16 14:11] VITALS: BP 152/58; TEMP 97.8; O2SAT 95
== END 2024-04-16 14:12 | disposition home or self-care (01) ==
LOC: M ED 09:22
DX: M79.605 Pain in left leg (principal); I25.10 Atherosclerotic heart disease of native coronary artery without angina pectoris; I25.2 Old myocardial infarction; I10 Essential (primary) hypertension; K21.9 Gastro-esophageal reflux disease without esophagitis; H40.9 Unspecified glaucoma; J44.9 Chronic obstructive pulmonary disease, unspecified; Z86.73 Personal history of transient ischemic attack (TIA), and cerebral infarction without residual deficits; F17.200 Nicotine dependence, unspecified, uncomplicated; Z79.82 Long term (current) use of aspirin; Z79.899 Other long term (current) drug therapy; Z88.8 Allergy status to other drugs, medicaments and biological substances

== ENCOUNTER → 2024-04-26 | Outpatient (REF) ==
[~2024-04-26] MED LIST changes: +PRED20TA PO
== END ==
LOC: M LAB 12:54
PROVIDERS: ATTEND Pathology Forensic Pathology